=== PATIENT | female | born 1965 | race Caucasian/White ===

== ENCOUNTER 2017-06-04 19:26 | Inpatient (IN) | payer OTHER ==
[~2017-06-04] VITALS: Ht 165.1 cm; Wt 108.0 kg
--- NOTE | ~2017-06-04 | HP ---
Unit #: [id number] #: [id number] Patient: RADHA CHAKRABORTY [id number] [address] [place], [place] [address] [id number] I MR#: [id number] NAME: RADHA CHAKRABORTY. ROOM: 314 Age: 52 Sex: F Admission Date: 06/05/2017 : 1965 Attending Physician: Cheryl Ramey M.D. Primary Care Physician: Carrillo Crespo M.D. HISTORY AND PHYSICAL CHIEF COMPLAINT Intermittent chest pain, shortness of breath, kidney stones. HISTORY This 52-year-old female with hypothyroidism, chronic pain syndrome, mitral valve prolapse, is admitted for chest pain and kidney stones. The patient states that she was well until about three weeks ago when she was treated with antibiotics for a sinus infection with improvement. About a week or so afterwards, began to experience some chest pain, worse with exertion and stress, described as a pressure in the center of her chest. With this, she would experience shortness of breath, diaphoresis and fatigue. Her symptoms would last anywhere between 10 to 30 minutes. Also began to note right upper quadrant discomfort. She presented to this emergency department last evening with negative cardiac enzymes and normal EKG. In the course of her evaluation, a CT scan was performed of the abdomen and pelvis showing a large chronic right mid ureteral calculus measuring 1.7 cm with an adjacent 4 mm calculus. This was associated with severe right hydronephrosis and moderate to severe atrophy of the right kidney. Also noted was a large nonobstructing staghorn calculus in the intrarenal collecting system. A call was made to urology who will be seeing the patient in the morning. The patient was given aspirin, Rocephin, and bolused with a liter of saline. The patient has a history of mitral valve prolapse. She is maintained on beta blockers, I believe arrhythmias. Had a Cardiolite stress test performed in 2004 which was [address] Gutiérrez. PAST MEDICAL HISTORY 1. Hypothyroidism. 2. Fibromyalgia. 3. Chronic fatigue syndrome. 4. 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 5. Negative Cardiolite stress test in 2004. 6. History of mitral valve prolapse. 7. Kidney stone requiring ESWL in 2011. 8. Depression. 9. Hysterectomy. 10. . 11. Gastric bypass. 12. Cholecystectomy. 13. Bilateral foot surgery. 14. Tonsillectomy. Unit #: [id number] #: [id number] Patient: RADHA CHAKRABORTY ALLERGIES Cipro and sulfa. HOME MEDICATIONS 1. Zyrtec 10 mg daily. 2. Flexeril 10 mg. 3. Lunesta q. h.s. p.r.n. 4. Duragesic 75 mcg/hour every 48 hours. 5. Prozac 40 mg daily. 6. Lasix 20 mg daily. 7. Synthroid 0.175 mg daily. 8. Lopressor 25 mg b.i.d. 9. Multivitamin daily. 10. Naprosyn 220 mg, two tablets b.i.d. 11. Oxycodone 30 mg t.i.d. p.r.n. 12. Potassium 10 mEq daily. 13. Vitamin B12, 100 mcg daily. FAMILY HISTORY Positive for premature coronary artery disease and abdominal aortic aneurysm. SOCIAL HISTORY The patient lives alone. 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 She is a lifelong nonsmoker, does not drink alcohol. REVIEW OF SYSTEMS Notable for chest pain, shortness of breath, diaphoresis, weakness, hypothyroidism, fibromyalgia, chronic fatigue syndrome, mitral valve prolapse, kidney stones, depression, chronic pain, above mentioned surgeries. All other systems were reviewed and otherwise negative. PHYSICAL EXAMINATION GENERAL APPEARANCE: Pleasant, obese, 52-year-old female, currently in no acute distress. VITAL SIGNS: Temperature 98.3, pulse 107, respirations 18, blood pressure 141/91. O2 saturation is 99% on room air. HEENT: Eyes PERRLA. Extraocular muscles are intact. Pharynx is benign. NECK: Supple without adenopathy or thyromegaly. CHEST: Clear. CARDIAC: Normal S1 and S2 without S3, S4 or murmur. ABDOMEN: Bowel sounds are present. No hepatosplenomegaly, tenderness or masses. EXTREMITIES: Without C, C or E. Pedal pulses are present. NEUROLOGIC: The patient is awake, alert, oriented. Cranial nerves are intact. Equal strength throughout. Negative CVA tenderness. DIAGNOSTIC STUDIES LABORATORY: Hematocrit is 36.5, normal white count and platelet count. MCV is 78. Normal coags. Negative D-dimer. SMA-12 - glucose 131, sodium 134, potassium 3.4, alkaline phos. 143, normal lipase, normal BNP. Negative cardiac markers. Urinalysis - 2+ leukocyte esterase with 50-100 red cells, 10-25 white cells, 1+ bacteria noted. IMAGING: Chest x-ray - no acute disease. Unit #: [id number] #: [id number] Patient: RADHA CHAKARBORTY CT scan of the chest shows large chronic right mid ureteral calculus measuring 1.7 cm with adjacent 4 mm calculus. Severe right hydronephrosis with moderate to severe atrophy. This is new since 2011. Large nonobstructing staghorn calculus measuring 3 cm in the left intrarenal collecting system. CARDIOVASCULAR: EKG - sinus rhythm, rate 88, normal appearing. ASSESSMENT 1. Intermittent chest pain, shortness of breath and diaphoresis in patient with mitral valve prolapse and positive family history of CAD. 2. Bilateral kidney stones, one of which is obstructive on the right. The patient has been experiencing what sounds to be some renal colic on the right. 3. Chronic pain. 4. Mitral valve prolapse and beta blockers. 5. Chronic fatigue syndrome and fibromyalgia. 6. Hypothyroidism. PLANS 1. IV fluids. 2. Aspirin. 3. Serial cardiac enzymes. 4. Consult cardiology. 5. Urology was consulted in the ER. 6. SCDs for DVT prophylaxis. Dictated by Sherire Estrella/akil TD: 06/05/2017 05:19 JOB #: [id number] HISTORY AND PHYSICAL Page 1 of 1 X Cheryl Ramey MD X HISTORY AND PHYSICAL
--- NOTE | ~2017-06-04 | CT2 ---
[facility] A Service of [facility] & [facility] RADIOLOGY TEXT RESULTS PATIENT: RADHA CHAKRABORTY LOCATION: [facility] 314-01 : [birth year] UNIT #: [id number] AGE: [address]: Arun Fong MD SEX: F ORDER DR: [id number] [facility] [address] [place], [place] [address] [id number] I MR#: [id number] Acc #: [id number] NAME: RADHA CHAKRABORTY : 1965 SEX: F STUDY DATE/TIME: 06/04/2017 21:55 [facility] ROOM: [facility] STUDY DESCRIPTION: CT Abd and Pelv W Cont Attending Physician: Arun Fong M.D. Ordering Physician: Merrick Pachceo D.O. Primary Care Physician: Carrillo Crespo M.D. MEDICAL IMAGING REPORT This report is preliminary unless electronic signature is present EXAM CT abdomen and pelvis with contrast, 06/04/2017. HISTORY 52-year-old female in the ED complaining of 10-day history of persistent right side cramping abdominal pain and diarrhea. TECHNIQUE CT examination of the abdomen and pelvis was performed without IV contrast. GI contrast was not ordered. This CT exam was performed with one or more of the following radiation dose reduction techniques: automatic exposure control, adjustment of mA and/or kV according to patient size, and iterative reconstruction. FINDINGS Abdomen findings: There are 2 obstructing calculi within the right mid ureter at the upper pelvis level, with the larger calculus measuring about 17 x 8 mm and the smaller calculus measuring about 4 mm. This causes severe right side hydronephrosis. Right hydronephrosis appears likely chronic as there is associated marked right renal parenchymal atrophy, a new finding since previous study performed on 07/06/2012. There is a large, branching staghorn calculus within the left inferior renal collecting system measuring at least 3 cm in size. No evidence of urinary obstruction on the left at this time. Both kidneys, both ureters and urinary bladder otherwise negative. Cholecystectomy. No bile duct dilatation. Postop changes gastroplasty surgery. The liver and pancreas are within normal limits. The spleen is mildly enlarged. Small bowel and colon are normal in caliber and appearance, as imaged. [facility] A Service of [facility] RADIOLOGY TEXT RESULTS PATIENT: RADHA CHAKRABORTY LOCATION: [facility] 314-01 : [birth year] UNIT #: [id number] AGE: [address]: Arun Fong MD SEX: F ORDER DR: Normal appendix. Normal-caliber abdominal aorta. Pelvis findings: Hysterectomy. Both ovaries are negative. Urinary bladder and rectum are within normal limits. IMPRESSION 1. Large, likely chronically obstructing right mid ureter calculus measuring up to 1.7 cm in size, with an additional tiny 4 mm right mid renal calculus. This is associated with severe right hydronephrosis and moderately severe generalized right renal parenchymal atrophy. These findings were not present on 07/06/2012. 2. Large, nonobstructing staghorn type calculus within the left infrarenal collecting system measuring at least 3 cm in size. 3. Postop changes including cholecystectomy, gastric bypass surgery and hysterectomy. 4. Normal appendix. Dictated by... Thuan Rojas M.D. THIS IS AN ELECTRONICALLY VERIFIED REPORT Thuan Rojas M.D. at 06/05/2017 10:00 PM BHARATI/geovanna TD: 06/05/2017 11:26 JOB #: [id number] MEDICAL IMAGING REPORT Page 1 of 1 COPY
--- NOTE | ~2017-06-04 | DS ---
Unit #: [id number] #: [id number] Patient: RADHA CHAKRABORTY [id number] [address] [place], [place] [address] [id number] I MR#: [id number] NAME: RADHA CHAKRABORTY. ROOM: 314 Age: 52 Sex: F Admission Date: 06/05/2017 : 1965 Discharge Date: 06/06/2017 Attending Physician: Arun Fong M.D. Primary Care Physician: Carrillo Crespo M.D. DISCHARGE SUMMARY DISCHARGE DIAGNOSES 1. Bilateral kidney stones. 2. Right-sided hydronephrosis. 3. Chronic pain, on narcotics. 4. Chest pain. 5. Chronic fatigue syndrome. 6. Fibromyalgia. HOSPITAL COURSE The patient is a 52-year-old female who presented to [facility] emergency department secondary to some chest pain. During the course of her workup she was also noted to have bilateral kidney stones and associated severe right-sided hydronephrosis with moderate to severe atrophy of the right kidney. She was admitted and seen by both urology and cardiology. The patient was taken the day of admission for cystoscopy with bilateral stent placement, given CT findings. She tolerated the procedure well. At this time she is scheduled for outpatient stone treatment and stent removal. Regarding her chest pain, cardiology felt that it was very atypical for coronary artery disease and felt that an outpatient stress test would be appropriate workup. The pain has resolved and she should have a stress test in two weeks. The patient was initially thought to have a urinary tract infection upon admission. However, urine culture returned growing normal urogenital corina and thus it was felt that the original urinalysis was a contaminated specimen. As a result, the patient requires no further antibiotics. DISCHARGE MEDICATIONS 1. Prozac 40 mg daily. 2. Zyrtec 10 mg daily. 3. Lunesta 1 mg p.o. at nighttime p.r.n. insomnia. 4. Lopressor 50 mg p.o. b.i.d. 5. Lasix 20 mg daily. 6. Phenazopyridine 200 mg p.o. t.i.d. p.r.n. dysuria. 7. Multivitamins daily. 8. Naproxen 440 mg p.o. b.i.d. p.r.n. 9. Duragesic patch topically q.48 h. 10. Roxicodone 30 mg p.o. q.8 h. p.r.n. breakthrough pain. 11. Potassium chloride ER 10 mEq p.o. b.i.d. 12. Flexeril 10 mg p.o. q.8 h. p.r.n. muscle spasm. Unit #: [id number] #: [id number] Patient: RADHA CHAKRABORTY 13. Synthroid 175 mcg p.o. daily. 14. Vitamin B12 50 mcg daily. FOLLOWUP As mentioned above. The patient is to follow up with cardiology for stress test in two weeks. Additionally, she should follow up with Dr. Diggs for bilateral stent removal and lithotripsy. Dictated by... Sherrie Henriquez/geovanna TD: 06/08/2017 08:56 JOB #: [id number] DISCHARGE SUMMARY Page 1 of 1 X Arun Fong MD X DISCHARGE SUMMARY
--- NOTE | ~2017-06-04 | CO ---
Unit #: [id number] #: [id number] Patient: RADHA CHAKRABORTY [id number] [address] [place], [place] [address] [id number] I MR#: [id number] NAME: RADHA CHAKRABORTY. ROOM: 314 Age: 52 Sex: F Admission Date: 06/05/2017 : 1965 Attending Physician: Arun Fong M.D. Primary Care Physician: Carrillo Crespo M.D. Consultation Date: 06/05/2017 CONSULTATION REPORT REASON FOR CONSULTATION Intermittent chest pain. HISTORY OF PRESENT ILLNESS This is a 52-year-old female with a history of mitral valve prolapse, exercise Cardiolite stress test in June 2005 that was normal, hypertension, hypothyroidism, fibromyalgia, chronic fatigue syndrome, chronic cervical neck pain and a family history of coronary artery disease. She presented to the ER with reports of intermittent chest discomfort, ongoing, off and on for about two weeks and right upper quadrant abdominal pain. States she woke up Sunday with some chest tightness and heaviness as well as shortness of breath, nausea and diaphoresis; denies any radiating pain or neck or jaw discomfort. The pain lasted about 30 minutes and resolved with rest. States she has had similar episodes for the last two weeks. It usually starts out with diaphoresis and feeling like she needs to go to the bathroom and then she feels the pressure in her chest. She also reports that her fibromyalgia has been flared up for the last two weeks, ever since she finished an antibiotic for a sinus infection. Reports increasing weakness and fatigue. CT scan in the ER showed a large chronic right mid ureteral calculus measuring 1.7 cm with an adjacent 4 mm calculus and associated right hydronephrosis and moderate to severe atrophy of the right kidney. She also had another large nonobstructing stone in the intrarenal collecting system. Urology was consulted. This morning she underwent cystoscopy with a ureteral stent placement. Her EKG and troponin were negative for ischemia. PAST MEDICAL HISTORY 1. Normal exercise Cardiolite stress test in June 2005. 2. Hypertension. 3. Mitral valve prolapse. 4. Hypothyroidism. 5. Fibromyalgia. 6. Chronic fatigue syndrome. 7. Chronic cervical neck pain. 8. Lifetime nonsmoker. 9. Status post gastric bypass. PAST SURGICAL HISTORY Unit #: [id number] #: [id number] Patient: RADHA CHAKRABORTY 1. Cystoscopy. 2. Hysterectomy. 3. . 4. Gastric bypass. 5. Cholecystectomy. 6. Bilateral foot surgery. 7. Tonsillectomy. SOCIAL HISTORY She states she is not very active, especially in the last few weeks. 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 She is a lifetime nonsmoker. She denies alcohol or illicit drug use. FAMILY HISTORY Her mother had coronary artery disease requiring stents in her late 40s and her father had a CABG in his late 40s. ALLERGIES Cipro, sulfa, quinolones. HOME MEDICATIONS 1. Zyrtec 10 mg p.o. daily. 2. Flexeril 10 mg p.o. q.8 h. p.r.n. for muscle spasms. 3. Lunesta one tab p.o. q.h.s. 4. Fentanyl/Duragesic 75 mcg per hour one patch q.48 h. 5. Prozac 40 mg p.o. daily. 6. Roxicodone 30 mg p.o. q.8 h. p.r.n. for severe pain. 7. Potassium chloride 10 mEq p.o. b.i.d. 8. Vitamin B12 50 mcg p.o. daily. 9. Lasix 20 mg p.o. daily. 10. Synthroid 175 mcg p.o. daily. 11. Lopressor 50 mg p.o. b.i.d. 12. Multivitamin one p.o. daily. 13. Naproxen sodium 440 mg p.o. q.12 h. p.r.n. for pain. REVIEW OF SYSTEMS A 10-point review of systems was conducted and was otherwise negative except for what was stared in the HPII. PHYSICAL EXAMINATION VITAL SIGNS: Temperature 98.6, heart rate 86, respiratory rate 16, blood pressure 160/102 to 130/84. HEENT: Head is atraumatic and normocephalic. Pupils are equal and reactive to light. Mucous membranes are most and intact. NECK: Supple. Trachea is midline. No JVD. CHEST: Breath sounds are clear. Nonlabored respirations. CARDIOVASCULAR: S1 and S2. Regular rate and rhythm. No significant murmurs, rubs or gallops. ABDOMEN: Bowel sounds are present. Abdomen is soft, nontender, nondistended. EXTREMITIES: Pulses are palpable. No pedal edema. No cyanosis. NEUROLOGIC: Alert and oriented x3. Moves all extremities equally and follows commands without difficulty. DIAGNOSTIC STUDIES LABORATORY RESULTS: Glucose 90, BUN 8, creatinine 0.9, sodium 136, potassium 3.9, chloride 105, AST 27, ALT 20, alkaline phosphatase 143, lipase 27. Point of care troponin was less than 0.05 and troponin was Unit #: [id number] #: [id number] Patient: RADHA CHAKRABORTY 0.03. BNP was 13 and D-dimer was 468. Hemoglobin 11, hematocrit 34.1, white blood cell count 5.2, platelets 267. Urinalysis showed 2+ leukocyte esterase with 50 to 100 red cells and 10 to 25 white cells and 1+ bacteria. IMAGING: Chest x-ray showed no acute findings. CT scan of the chest shows large chronic right mid ureteral calculus measuring 1.7 cm, with adjacent 4 mm calculus. Severe right hydronephrosis with adjacent 4 mm calculus. Severe right hydronephrosis with moderate to severe atrophy. There is also a large nonobstructing staghorn calculus measuring 3 cm in the left infrarenal collecting system. CARDIOVASCULAR: EKG shows normal sinus rhythm with a ventricular rate of 72 and nonspecific T-wave abnormalities. ASSESSMENT 1. Chest pain, atypical for significant ischemic heart disease. 2. Obesity. 3. Renal stone, status post ureteral stent placement today. 4. Hypertension. 5. Lifetime nonsmoker. 6. Fibromyalgia. PLAN Her chest discomfort does not appear to be typical for ischemic heart disease. We will check a lipid profile and resume her Lopressor. In light of her ischemic risk factors of hypertension and positive family history, we would plan for outpatient exercise Cardiolite stress test. That will be scheduled per our office. No further ischemic workup planned at this time. Patient is stable for discharge from a cardiovascular standpoint. Thank you for asking us to see this patient. We appreciate the consult. Dictated by... Renee Chakraborty APRN for Yaya Gutiérrez M.D. ROSE/ni TD: 06/05/2017 21:38 JOB #: [id number] CONSULTATION REPORT Page 1 of 1 X X CONSULTATION REPORT
--- NOTE | ~2017-06-04 | EKG ---
PATIENT: RADHA CHAKRABORTY UNIT #: [id number] Ventricular Rate: 88 BPM Atrial Rate: 88 BPM P-R Interval: 128 ms QRS Duration: 74 ms Q-T Interval: 370 ms QTC Calculation(Bezet): 447 ms P [place]: 9 degrees Calculated R [place]: 2 degrees Calculated T [place]: 12 degrees Diagnosis Line: Normal sinus rhythm Diagnosis Line: Normal ECG Diagnosis Line: When compared with ECG of 06-JUL-2012 07:30, Diagnosis Line: No significant change was found Diagnosis Line: Confirmed by CARLOS RICHMOND MD ([id number]) on 06/05/2017 Diagnosis Line: 11:49:33 PM INTERPRETING MD: YI BURNETT
--- NOTE | ~2017-06-04 | CR72 ---
[facility] A Service of [facility] & [facility] RADIOLOGY TEXT RESULTS PATIENT: RADHA CHAKRABORTY LOCATION: [facility] 314-01 : [birth year] UNIT #: [id number] AGE: [address]: Arun Fong MD SEX: F ORDER DR: [id number] [facility] [address] [place], [place] [address] [id number] I MR#: [id number] Acc #: [id number] NAME: RADHA CHAKRABORTY : 1965 SEX: F STUDY DATE/TIME: 06/04/2017 20:13 UNIT: [address] ROOM: [facility] STUDY DESCRIPTION: CR Chest Single View Portable Attending Physician: Arun Fong M.D. Ordering Physician: Merrick Pacheco D.O. Primary Care Physician: Carrillo Crespo M.D. MEDICAL IMAGING REPORT This report is preliminary unless electronic signature is present EXAM Single view of the chest dated 06/04/2017. COMPARISON Chest 2 views dated 11/10/2015. HISTORY Right-sided chest pain, rib pain and shortness of air for 1 week. TECHNIQUE Single view of the chest was obtained. FINDINGS A single AP portable view of the chest shows both lungs to be clear. The heart is normal in size. The mediastinal contour is normal. No significant bone abnormalities are seen. IMPRESSION Normal portable chest. Dictated by... Maxwell Sheppard M.D. THIS IS AN ELECTRONICALLY VERIFIED REPORT Maxwell Sheppard M.D. at 06/06/2017 3:20 PM CPR/gz TD: 06/05/2017 10:27 JOB #: [id number] MEDICAL IMAGING REPORT Page 1 of 1 COPY
--- NOTE | ~2017-06-04 | OR ---
Unit #: [id number] #: [id number] Patient: RADHA CHAKRABORTY [id number] [address] [place], [place] [address] [id number] I MR#: [id number] NAME: RADHA CHAKRABORTY. ROOM: [facility] Date of Procedure: 06/05/2017 Admission Date: 06/05/2017 Surgeon: Jakob Diggs M.D. : 1965 Attending Physician: Arun Fong M.D. Primary Care Physician: Carrillo Crespo M.D. OPERATIVE REPORT PREOPERATIVE DIAGNOSES Right ureteral stone, left kidney stone. POSTOPERATIVE DIAGNOSES Right ureteral stone, left kidney stone. PROCEDURES PERFORMED Cystoscopy, bilateral stent placement. DESCRIPTION OF PROCEDURE After informed consent, she was taken to the cystoscopy suite, placed under general anesthetic, positioned in lithotomy. Her vagina and perineum were prepped and draped in the usual sterile fashion. Cystoscopy was performed showing a normal urethra and bladder. There were no tumors, stones, or diverticula. The entire bladder was inspected. On fluoroscopy, the stones were visible. A stent was placed in the right with good coil in the bladder and collecting system. Stent was placed in the left with good coil in the bladder and collecting system. The patient had permanent films obtained. PLAN Eventual treatment of her stone as an outpatient. She will be returned to the floor. She tolerated the procedure well. All counts were correct at the end of procedure. Dictated by... Sherrie Becerra/christinel TD: 06/05/2017 10:59 JOB #: [id number] Unit #: [id number] #: [id number] Patient: RADHA CHAKRABORTY OPERATIVE REPORT Page 1 of 1 X Jakob Diggs MD X PROCEDURE OPERATIVE NOTE
--- NOTE | ~2017-06-04 | CO ---
Unit #: [id number] #: [id number] Patient: RADHA CHAKRABORTY [id number] [address] [address] [id number] I MR#: [id number] NAME: RADHA CHAKRABORTY. ROOM: 314 Age: 52 Sex: F Admission Date: 06/05/2017 : 1965 Attending Physician: Arun Fong M.D. Primary Care Physician: Carrillo Crespo M.D. Consultation Date: 06/05/2017 CONSULTATION REPORT CHIEF COMPLAINT Abdominal pain. HISTORY OF PRESENT ILLNESS A 52-year-old woman with a history of kidney stones reported to the emergency room, evaluated, found to have stone in the right ureter over 1 cm obstructing and a large staghorn stone in the left kidney. The stone on the right ureter is 1.7 cm. The large stone in the left kidney is probably over 2 cm. PAST MEDICAL HISTORY 1. Hypothyroidism. 2. Fibromyalgia. 3. Chronic fatigue syndrome. 4. Cervical spine disk disease. 5. Mitral valve prolapse. 6. Shockwave lithotripsy. 7. Depression. 8. Hysterectomy. 9. . 10. Gastric bypass. 11. Cholecystectomy. 12. Bilateral foot surgery. 13. Tonsillectomy. ALLERGIES Cipro, sulfa. MEDICATIONS 1. Zyrtec. 2. Flexeril. 3. Lunesta. 4. Duragesic. 5. Prozac. 6. Lasix. 7. Synthroid. 8. Lopressor. 9. Multivitamin. 10. Naproxen. 11. Oxycodone. 12. Potassium. 13. Vitamin B12. FAMILY HISTORY Unit #: [id number] #: [id number] Patient: RADHA CHAKRABORTY Positive for kidney stones. SOCIAL HISTORY Negative for smoking. REVIEW OF SYSTEMS Negative for all 10 systems except for some chest pain, chronic pain, overall not feeling well. PHYSICAL EXAMINATION VITAL SIGNS: She is afebrile currently. Vital signs stable. GENERAL: She is somewhat obese. HEENT: Eyes: Pupils equal and reactive to light. NECK: Supple. CHEST: Benign. CARDIAC: Benign. ABDOMEN: Soft without rebounding. No tenderness. EXTREMITIES: No clubbing, cyanosis, or edema. CRANIAL NERVES: II-XII are intact. DIAGNOSTIC STUDIES LABORATORY: White count is normal, hematocrit 36.5. Urinalysis: Two plus leukocytes, 1+ bacteria. ASSESSMENT Right ureteral stone, left large staghorn stone new since March 2012. PLAN I explained to her the risks, benefits, and alternatives and recommend cystoscopy with bilateral stent placement with eventual treatment of her stones. She consented to the procedure. Dictated by... Jakob Diggs M.D. NELSON/nidhi TD: 06/05/2017 15:33 JOB #: [id number] CONSULTATION REPORT Page 1 of 1 X Jakob Diggs MD X CONSULTATION REPORT
[~2017-06-04 19:26] MED LIST: ACIPHEX20 MG PO; DARVOCET-N 1001 TAB PO; FENTANYL TD; FLEXERIL PO; FLONASE16 GM; LASIX20 MG PO; LEXAPRO PO; METOPROLOL TART25 MG PO; OXYCODONE15 MG PO; ROBAXIN PO; SKELAXIN PO; SYNTHROID PO; ZOFRAN PO; ZOLOFT50 MG PO; ZYRTEC PO
[2017-06-04 20:13] LABS: URINE SOURCE CLEAN CATCH
[2017-06-04 20:20] LABS: URINE APPEARANCE CLEAR; URINE BILIRUBIN NEG (NEG); URINE BLOOD 2+ (NEG); URINE COLOR YELLOW; URINE GLUCOSE NEG (NEG); URINE KETONE NEG (NEG); URINE LEUKOCYTE ESTERASE 2+ (NEG); URINE NITRATE NEG (NEG); URINE PH 5.5 (5-8); URINE PROTEIN NEG (NEG); URINE SPECIFIC GRAVITY 1.008 (1.003-1.035)
[2017-06-04 20:22] LABS: BASOPHIL% 0.5 % (0-2.5); CULTURE INDICATED? YES; EOSINOPHIL% 0.1 % (0.0-7.0); HEMATOCRIT 36.5 % (35.0-45.0); LYMPHOCYTE# 1.1 X10e3 (1.0-3.5); LYMPHOCYTE% 22.9 % (17.0-45.0); MEAN CELL VOLUME 78.4 FL (83-96); MEAN CORPUSCULAR HEMOGLOBIN 25.8 PG (28-34); MEAN CORPUSCULAR HGB CONC 32.9 g/dL (30-36); MEAN PLATELET VOLUME 7.8 FL (6.5-11.5); MONOCYTE# 0.4 X10e3 (0-1.0); MONOCYTE% 7.6 % (3.0-12.0); NEUTROPHIL# 3.4 X10e3 (1.5-7.1); NEUTROPHIL% 68.9 % (40-75); PLATELET COUNT 269 X10e3 (140-420); RED BLOOD COUNT 4.66 X10e (3.90-5.30); RED CELL DISTRIBUTION WIDTH 13.4 % (11.0-15.5); U HYALINE CASTS AUWI 0-2 /[LPF]; URINE BACTERIA AUWI 1+ (NEGATIVE); URINE SQUAMOUS EPITHELIAL CELL OCC /[HPF]; WHITE BLOOD COUNT 4.9 X10e3 (4.0-10.5)
[2017-06-04 20:25] LABS: DIFF IND NO
[2017-06-04 20:33] LABS: POC - CKMB 1.2 ng/mL (0.0-7.9); POC - TROPONIN <0.05 ng/mL (<=0.05)
[2017-06-04 20:36] LABS: INR 1.1; PARTIAL THROMBOPLASTIN TIME 25.7 SECONDS (23.5-31.3); PROTHROMBIN TIME (PATIENT) 11.4 SECONDS (10.0-11.7)
[2017-06-04 20:43] LABS: ALBUMIN SERUM 3.6 g/dL (3.5-5.0); BILIRUBIN, DIRECT 0.1 mg/dL (0.0-0.2); BILIRUBIN,INDIRECT 0.5 mg/dL (0.0-0.9); BILIRUBIN,TOTAL 0.6 mg/dL (0.2-2.0); CALCIUM SERUM 8.8 mg/dL (8.4-10.2); CREATININE SERUM 0.9 mg/dL (0.6-1.4); GLOM FILT RATE Estimated 74.6 mL/min (>60); POTASSIUM 3.4 mmol/L (3.5-5.1); PROTEIN TOTAL SERUM 7.2 g/dL (6.0-8.3)
[2017-06-04 21:54] LABS: POC - CKMB 1.1 ng/mL (0.0-7.9); POC - TROPONIN <0.05 ng/mL (<=0.05)
[2017-06-05 06:37] LABS: HEMATOCRIT 34.1 % (35.0-45.0); MEAN CELL VOLUME 78.9 FL (83-96); MEAN CORPUSCULAR HEMOGLOBIN 25.5 PG (28-34); MEAN CORPUSCULAR HGB CONC 32.3 g/dL (30-36); MEAN PLATELET VOLUME 7.7 FL (6.5-11.5); RED BLOOD COUNT 4.33 X10e (3.90-5.30); RED CELL DISTRIBUTION WIDTH 13.3 % (11.0-15.5); WHITE BLOOD COUNT 5.2 X10e3 (4.0-10.5)
[2017-06-05 07:19] LABS: BUN/CREATININE RATIO 8.88; CALCIUM SERUM 8.4 mg/dL (8.4-10.2); CREATININE SERUM 0.9 mg/dL (0.6-1.4); GLOM FILT RATE Estimated 74.6 mL/min (>60); POTASSIUM 3.9 mmol/L (3.5-5.1)
[2017-06-06 05:02] LABS: HEMATOCRIT 33.7 % (35.0-45.0); HEMOGLOBIN 10.9 gm/dL (12.0-16.0); MEAN CELL VOLUME 79.8 FL (83-96); MEAN CORPUSCULAR HEMOGLOBIN 25.9 PG (28-34); MEAN CORPUSCULAR HGB CONC 32.5 g/dL (30-36); MEAN PLATELET VOLUME 7.9 FL (6.5-11.5); RED BLOOD COUNT 4.22 X10e (3.90-5.30); RED CELL DISTRIBUTION WIDTH 13.5 % (11.0-15.5); WHITE BLOOD COUNT 6.5 X10e3 (4.0-10.5)
[2017-06-06 06:04] LABS: CALCIUM SERUM 8.2 mg/dL (8.4-10.2); GLOM FILT RATE Estimated 65.7 mL/min (>60); MAGNESIUM 1.9 mg/dL (1.6-3.0); POTASSIUM 4.2 mmol/L (3.5-5.1)
[2017-06-06 06:11] LABS: CHOLESTEROL 201 mg/dL (0-200); HDL CHOLESTEROL 50 mg/dL (35-95); LDL/HDL RATIO 3 RATIO (0-4); TRIGLYCERIDES 73 mg/dL (10-160)
[2017-06-06 06:13] LABS: LDL CHOLESTEROL 136 mg/dL (-130)
[2017-06-29] MEDS ORDERED: POTASSIUM CHLO10 MEQ PO
[2017-06-29] MEDS ORDERED: ROXICODONE30 M1 PO
[2017-06-29] MEDS ORDERED: VITAMIN B-1250 MCG PO (00:01)
[2017-06-29] MEDS ORDERED: PYRIDIUM PO (10:41)
[2017-06-29] MEDS ORDERED: ZYRTEC10 M1 PO (23:55)
[2017-06-29] MEDS ORDERED: FLEXERIL10 MG PO (23:55)
[2017-06-29] MEDS ORDERED: LUNESTA1 MG PO (23:56)
[2017-06-29] MEDS ORDERED: PROZAC40 MG PO (23:57)
[2017-06-29] MEDS ORDERED: LASIX20 MG PO (23:57)
[2017-06-29] MEDS ORDERED: DURAGESIC1 EAC1 TD (23:57)
[2017-06-29] MEDS ORDERED: MULTI-VITAMIN1 EAC1 PO (23:58)
[2017-06-29] MEDS ORDERED: SYNTHROID175 MCG PO (23:58)
[2017-06-29] MEDS ORDERED: LOPRESSOR PO (23:58)
[2017-06-29] MEDS ORDERED: NAPROXEN SODIU220 M1 PO (23:59)
== END 2017-06-06 14:00 | disposition home or self-care (01) | DRG 694 ==
LOC: CED 19:26 → CEDOF 06-05 02:45 → CED 06-05 02:55 → CEDOF 06-05 02:55 → C3A PCU 06-05 04:38
PROVIDERS: Emergency Medicine; Internal Medicine; Internal Medicine Cardiovascular Disease; Nurse Practitioner; Urology
PROC: 0T788DZ Dilation of Bilateral Ureters with Intraluminal Device, Via Natural or Artificial Opening Endoscopic (ICD-10-PCS; principal; 2017-06-05 07:30)
DX: N13.2 Hydronephrosis with renal and ureteral calculous obstruction (principal); I10 Essential (primary) hypertension; G89.4 Chronic pain syndrome; I34.1 Nonrheumatic mitral (valve) prolapse; E03.9 Hypothyroidism, unspecified; R53.82 Chronic fatigue, unspecified; I25.10 Atherosclerotic heart disease of native coronary artery without angina pectoris; Z95.5 Presence of coronary angioplasty implant and graft; Z90.710 Acquired absence of both cervix and uterus; Z90.49 Acquired absence of other specified parts of digestive tract; Z88.1 Allergy status to other antibiotic agents; Z88.2 Allergy status to sulfonamides; M50.30 Other cervical disc degeneration, unspecified cervical region; M79.7 Fibromyalgia; Z82.49 Family history of ischemic heart disease and other diseases of the circulatory system; R07.89 Other chest pain
CPT/HCPCS: 36415; 71010; 74177; 80048; 80061; 80076; 81003; 82550; 82553; 83690; 83735; 83880; 84484; 85025; 85027; 85379; 85610; 85730; 87086; 93005; 94760; 96365; 99285; J0696; J1100; J2250; J2270; J3010; Q9967

== ENCOUNTER → 2017-06-29 | Day surgery (SDC) | payer OTHER ==
[~2017-06-29] MED LIST changes: +DURAGESIC1 EAC1 TD; +FLEXERIL10 MG PO; +LOPRESSOR PO; +LUNESTA1 MG PO; +MULTI-VITAMIN1 EAC1 PO; +NAPROXEN SODIU220 M1 PO; +POTASSIUM CHLO10 MEQ PO; +PROZAC40 MG PO; +PYRIDIUM PO; +ROXICODONE30 M1 PO; +SYNTHROID175 MCG PO; +VITAMIN B-1250 MCG PO; +ZYRTEC10 M1 PO
--- NOTE | ~2017-06-29 | OR ---
Unit #: [id number] #: [id number] Patient: RADHA CAHKRABORTY [id number] [address] [id number] O MR#: [id number] NAME: RADHA CHAKRABORTY ROOM: Date of Procedure: 06/29/2017 Admission Date: 06/29/2017 Surgeon: Jakob Diggs M.D. : 1965 Attending Physician: Jakob Diggs M.D. Primary Care Physician: Carrillo Crespo M.D. OPERATIVE REPORT PREOPERATIVE DIAGNOSIS Right ureteral stone. POSTOPERATIVE DIAGNOSIS Right ureteral stone. PROCEDURES PERFORMED 1. Right ureteroscopy. 2. Laser lithotripsy. 3. Basket extraction. 4. Stent replacement. ANESTHESIA General. DESCRIPTION OF PROCEDURE After informed consent, she was taken to the operating room and placed under general anesthetic and positioned in lithotomy. Her vagina and perineum were prepped and draped in usual sterile fashion. Cystoscopy was performed revealing a normal urethra. She had two stent exiting the right and left ureters. The stent on the right was pulled out to the meatus, and a Sensor wire was placed inside the stent. The stent was removed. Rigid ureteroscopy was performed. She had a very large stone in the mid ureter. Using holmium laser, the stone was broken up into smaller pieces. The stone was greater than a centimeter in size. Those pieces were extracted using a Nitinol basket. Inspection of the proximal ureter showed no other stone fragments. The stent was positioned with good coil in the bladder and collecting system. The tether was removed. She has a large stone in the left kidney. We discussed her treatment of the left stone and may removal of her right stent in the future. She could benefit from ureteroscopy and shock wave lithotripsy on the left. She tolerated the procedure well. All counts were correct at the end of the procedure. Dictated by... Sherrie BecerraB/christinel TD: 06/30/2017 13:34 JOB #: [id number] Unit #: [id number] #: [id number] Patient: RADHA CHAKRABORTY OPERATIVE REPORT Page 1 of 1 X Jakob Diggs MD OPERATIVE NOTE
--- NOTE | ~2017-06-29 | EKG ---
PATIENT: RADHA CHAKRABORTY UNIT #: [id number] Ventricular Rate: 67 BPM Atrial Rate: 67 BPM P-R Interval: 124 ms QRS Duration: 72 ms Q-T Interval: 416 ms QTC Calculation(Bezet): 439 ms P Piggott: 13 degrees Calculated R Piggott: 21 degrees Calculated T Piggott: 19 degrees Diagnosis Line: Normal sinus rhythm Diagnosis Line: Normal ECG Diagnosis Line: When compared with ECG of 04-JUN-2017 20:05, Diagnosis Line: No significant change was found Diagnosis Line: Confirmed by FRANK OROPEZA MD ([id number]) on 07/02/2017 Diagnosis Line: 1:49:15 PM INTERPRETING MD: SANDIP BURNETT
[2017-06-29 13:27] LABS: BUN/CREATININE RATIO 13.07; CALCIUM SERUM 7.9 mg/dL (8.4-10.2); CREATININE SERUM 1.3 mg/dL (0.6-1.4); GLOM FILT RATE Estimated 47.8 mL/min (>60); POTASSIUM 4.5 mmol/L (3.5-5.1)
== END | disposition home or self-care (01) ==
LOC: CSUR 12:10
PROVIDERS: Urology
DX: N20.1 Calculus of ureter (principal); E03.9 Hypothyroidism, unspecified; I11.0 Hypertensive heart disease with heart failure; I50.9 Heart failure, unspecified; K21.9 Gastro-esophageal reflux disease without esophagitis; E66.01 Morbid (severe) obesity due to excess calories; M79.7 Fibromyalgia; Z98.84 Bariatric surgery status; Z87.442 Personal history of urinary calculi; Z90.49 Acquired absence of other specified parts of digestive tract; Z90.710 Acquired absence of both cervix and uterus; Z88.2 Allergy status to sulfonamides; Z88.1 Allergy status to other antibiotic agents; Z68.39 Body mass index [BMI] 39.0-39.9, adult
CPT/HCPCS: 80048; 82365; 93005; C2617; J0131; J0690; J1885; J1940; J2250; J2405; J3010